=== PATIENT | male | born 1965 | race Asian ===

== ENCOUNTER 2018-10-31 07:44 | Emergency (ER) | payer MEDICAID ==
[~2018-10-31] VITALS: Ht 180.3 cm; Wt 86.0 kg
[2018-10-31 07:45] VITALS: BP 132/74
== END 2018-10-31 11:12 | disposition home or self-care (01) ==
LOC: ER 07:44
DX: J06.9 Acute upper respiratory infection, unspecified (principal)
CPT/HCPCS: 99283

== ENCOUNTER 2018-11-14 18:34 | Emergency (ER) | payer MEDICAID ==
[~2018-11-14] VITALS: Ht 177.8 cm; Wt 95.0 kg
[2018-11-14 19:59] LABS: BASOPHILS % 0.9 % (0.0-2.0); EOSINOPHILS % 5.1 % (0.0-5.0); HEMATOCRIT. 39.7 % (42.0-52.0); LYMPHOCYTES % 40.8 % (20.0-50.0); MEAN CORPUSCULAR HEMOGLOBIN 33.3 pg (28.0-32.0); MEAN CORPUSCULAR VOLUME 94.7 fL (80.0-94.0); MEAN PLATELET VOLUME 8.6 fl (7.4-10.4); MONOCYTES % 7.5 % (2.0-8.0); NEUTROPHILS % 45.7 % (40.0-76.0); PLATELET 144 x1000/uL (130-400); RED BLOOD CELL COUNT 4.19 mill/uL (4.7-6.1); RED CELL DISTRIBUTION WIDTH 12.4 % (11.6-14.6)
[2018-11-14 20:02] LABS: CHLORIDE 103 mEq/L (98-107)
[2018-11-14 20:08] LABS: CLARITY URINE CLEAR (CLEAR); COLOR URINE YELLOW (YELLOW); KETONES URINE NEGATIVE (NEGATIVE); LEUKOCYTE ESTERASE URINE NEGATIVE (NEGATIVE); NITRITE URINE NEGATIVE (NEGATIVE); OCCULT BLOOD URINE NEGATIVE (NEGATIVE); PROTEIN URINE NEGATIVE (NEGATIVE); SPECIFIC GRAVITY URINE 1.005 (1.005-1.030); UROBILINOGEN URINE 0.2 E.U./dL (0.2-1.0)
[2018-11-14 20:16] LABS: ETHANOL BLOOD 305 mg/dL
[2018-11-14 20:21] LABS: *AMPHETAMINES SCREEN URINE NEGATIVE (NEGATIVE); *BARBITURATES SCREEN URINE NEGATIVE (NEGATIVE)
[2018-11-14 20:22] LABS: *BENZODIAZEPINES SCREEN URINE NEGATIVE (NEGATIVE); *COCAINE SCREEN URINE NEGATIVE (NEGATIVE); METHADONE URINE SCREEN NEGATIVE (NEGATIVE); OPIATES URINE SCREEN NEGATIVE (NEGATIVE); PHENCYCLIDINE URINE SCREEN NEGATIVE (NEGATIVE)
[2018-11-14 20:23] LABS: CANNABINOID URINE SCREEN NEGATIVE (NEGATIVE)
[2018-11-14] MEDS ORDERED: SODIUM CHLORIDE 0.9% 1,000 ML IV NR (23:44)
[2018-11-15 16:15] VITALS: BP 125/79
== END 2018-11-15 16:30 | disposition home or self-care (01) ==
LOC: ER 19:40
DX: R45.851 Suicidal ideations (principal); E11.9 Type 2 diabetes mellitus without complications; F17.200 Nicotine dependence, unspecified, uncomplicated
CPT/HCPCS: 36415; 80053; 80305; 80320; 81003; 82962; 85025; 99284; Z7610; G0480

== ENCOUNTER 2018-12-18 20:34 | Emergency (ER) | payer MEDICAID ==
[~2018-12-18] VITALS: Ht 175.3 cm; Wt 87.0 kg
[2018-12-18] MEDS ORDERED: QUET100T PO (20:47)
[2018-12-18] MEDS ORDERED: GLIP5TAB12 PO (20:47)
[2018-12-19] MEDS ORDERED: ACETAMINOPHEN 325MG TABLET PO ONE (05:30)
[2018-12-19] MEDS ORDERED: GLIP10TA10 MT (06:00)
[2018-12-19] MEDS ORDERED: GABA-531 MT (06:00)
[2018-12-19] MEDS ORDERED: QUET25TA34 MT (06:00)
[2018-12-19 06:15] LABS: BASOPHILS % 0.8 % (0.0-2.0); EOSINOPHILS % 7.5 % (0.0-5.0); HEMATOCRIT. 35.6 % (42.0-52.0); HEMOGLOBIN. 12.6 g/dL (14.0-18.0); LYMPHOCYTES % 40.2 % (20.0-50.0); MEAN CORPUSCULAR HEMOGLOBIN 33.5 pg (28.0-32.0); MEAN PLATELET VOLUME 9.3 fl (7.4-10.4); MONOCYTES % 10.5 % (2.0-8.0); PLATELET 96 x1000/uL (130-400); RED BLOOD CELL COUNT 3.75 mill/uL (4.7-6.1); RED CELL DISTRIBUTION WIDTH 12.9 % (11.6-14.6)
[2018-12-19 06:21] LABS: CHLORIDE 102 mEq/L (98-107)
[2018-12-19 06:24] LABS: ETHANOL BLOOD 107 mg/dL
[2018-12-19 06:45] LABS: CLARITY URINE CLEAR (CLEAR); COLOR URINE YELLOW (YELLOW); KETONES URINE TRACE (NEGATIVE); LEUKOCYTE ESTERASE URINE NEGATIVE (NEGATIVE); NITRITE URINE NEGATIVE (NEGATIVE); OCCULT BLOOD URINE TRACE (NEGATIVE); PROTEIN URINE TRACE (NEGATIVE); SPECIFIC GRAVITY URINE 1.014 (1.005-1.030)
[2018-12-19 07:27] LABS: *AMPHETAMINES SCREEN URINE NEGATIVE (NEGATIVE); *BARBITURATES SCREEN URINE NEGATIVE (NEGATIVE); *BENZODIAZEPINES SCREEN URINE NEGATIVE (NEGATIVE); *COCAINE SCREEN URINE NEGATIVE (NEGATIVE); METHADONE URINE SCREEN NEGATIVE (NEGATIVE)
[2018-12-19 07:28] LABS: CANNABINOID URINE SCREEN NEGATIVE (NEGATIVE); OPIATES URINE SCREEN NEGATIVE (NEGATIVE); PHENCYCLIDINE URINE SCREEN NEGATIVE (NEGATIVE)
[2018-12-19 09:30] VITALS: BP 121/74
== END 2018-12-19 13:50 | disposition home or self-care (01) ==
LOC: ER 20:34
DX: R45.851 Suicidal ideations (principal); Z59.0 Homelessness; F32.3 Major depressive disorder, single episode, severe with psychotic features; D72.819 Decreased white blood cell count, unspecified; D69.6 Thrombocytopenia, unspecified; E11.65 Type 2 diabetes mellitus with hyperglycemia; Z79.84 Long term (current) use of oral hypoglycemic drugs; F17.210 Nicotine dependence, cigarettes, uncomplicated
CPT/HCPCS: 36415; 80048; 80305; 80307; 80320; 80329; 99284; G0480